=== PATIENT | male | born 1985 | race Caucasian/White ===

== ENCOUNTER → 2018-12-04 | Outpatient (CLI) | payer MEDICAID ==
[~2018-12-04] MED LIST: CARB200T48 PO; CLN.1T PO; NF-CARBAMX PO; RISP0.253; RISP0.5T21 PO; RISP1TAB94 PO; VIGAMOX OP
--- NOTE | 2018-12-04 12:06 | Diagnostic Imaging Report ---
CLINICAL INDICATION: Patient with seizures. EXAM: Axial CT scan of the brain performed without IV contrast. COMPARISON: CT angiogram of the head with and without contrast dated 12/09/2015. FINDINGS: There is overall stable appearance of brain parenchyma with small areas of chronic infarcts involving the bilateral frontal lobes (left side more than the right). There is stable encephalomalacia involving the parasagittal aspects of the bilateral parietal lobes and occipital lobes. There is encephalomalacia of the cerebellum bilaterally. There is no hydrocephalus, brain herniation or midline shift. There is no intracranial hemorrhage or evidence of acute cerebral infarct. Basal cisterns are unremarkable. The extracranial soft tissue, skull, and orbits show no significant interval abnormality. 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 There is near complete consolidation in right maxillary sinus which has progressed. There is a small air-fluid level in left maxillary sinus which has developed in the interim. Previously seen left maxillary sinus mucosal thickening is resolved. There is mild ethmoid sinus and frontal sinus mucosal thickening which has improved in the frontal sinus. Temporal bone structures show no significant abnormality. IMPRESSION: 1: There is overall progression of paranasal sinus disease, as described above. 2: Otherwise, stable brain parenchymal findings with no evidence of acute intracranial process. Dictated by: Dictated on workstation # [id number]
== END ==
LOC: RAD 11:12
PROVIDERS: ATTEND Psychiatry & Neurology Neurology
DX: J34.89 Other specified disorders of nose and nasal sinuses (principal); R56.9 Unspecified convulsions
CPT/HCPCS: 70450

== ENCOUNTER 2018-12-23 21:21 | Observation (INO) | payer MEDICAID ==
[~2018-12-23] VITALS: Ht 162.6 cm; Wt 60.1 kg
[2018-12-23 22:05] LABS: BASOPHILS % (AUTO) 0 % (0-10); EOSINOPHILS # (AUTO) 0.1 10^3/uL (0.0-0.3); EOSINOPHILS % (AUTO) 0 % (0-10); HEMATOCRIT 42 % (40-54); HEMOGLOBIN 14.5 G/DL (13.3-17.7); LYMPHOCYTES # (AUTO) 1.4 X 10^3 (1.0-4.0); LYMPHOCYTES % (AUTO) 11 % (12-44); MEAN CORPUSCULAR HEMOGLOBIN 33 PG (25-34); MEAN CORPUSCULAR HGB CONC 35 G/DL (32-36); MEAN CORPUSCULAR VOLUME 95 FL (80-99); MEAN PLATELET VOLUME 10.4 FL (7.4-10.4); MONOCYTES # (AUTO) 1.8 X 10^3 (0.0-1.0); MONOCYTES % (AUTO) 15 % (0-12); NEUTROPHILS % (AUTO) 73 % (42-75); PLATELET COUNT 302 10^3/uL (130-400); RED CELL DISTRIBUTION WIDTH 12.6 % (10.0-14.5); WHITE BLOOD COUNT 12.3 10^3/uL (4.3-11.0)
[2018-12-23] MEDS ORDERED: ASPIRIN 81 MG CHEW (CHILDREN'S ASA) PO ONE (22:15)
[2018-12-23 22:21] LABS: PROTHROMBIN TIME PATIENT 13.5 SEC (12.2-14.7)
[2018-12-23 22:27] LABS: ALANINE AMINOTRANSFERASE 13 U/L (0-55); ALBUMIN 4.3 GM/DL (3.2-4.5); ALKALINE PHOSPHATASE 76 U/L (40-136); BILIRUBIN,TOTAL 0.2 MG/DL (0.1-1.0); BUN/CREATININE RATIO 18; CARBON DIOXIDE 23 MMOL/L (21-32); CHLORIDE 104 MMOL/L (98-107); CREATINE KINASE 57 U/L (30-200); CREATININE SERUM 0.79 MG/DL (0.60-1.30); GFR ESTIMATED > 60; GLUCOSE 132 MG/DL (70-105); MAGNESIUM 1.9 MG/DL (1.6-2.4); SODIUM 140 MMOL/L (135-145); TOTAL PROTEIN 7.6 GM/DL (6.4-8.2)
--- NOTE | 2018-12-23 22:28 | ED General ---
General Chief Complaint: General Problems/Pain Stated Complaint: LABORED BREATHING Nursing Triage Note: mother states patient was asleep in bed and she heard a loud grouling sound coming from pts room and when she went to check on him he had turned blue around his mouth and nose and was not breathing and unresponsive to his name. Nursing Sepsis Screen: No Definite Risk Source of Information: Patient Exam Limitations: No Limitations History of Present Illness Date Seen by Provider: Dec 23, 2018 Time Seen by Provider: 21:42 Initial Comments This 33-year-old young man is brought to the emergency room by his mother after he had an episode of decreased responsiveness and possible cyanosis at his home. Mother heard him making some strange growling sounds and immediately went to his room. She found him not breathing and not alert. She raised him up to a sitting position and he immediately became alert, although his mental status was still altered. She reports he seems more somnolent than usual. He is talking and active on arrival. She reports she could not call 911 because her cell phone was . She immediately put him in the car and brought him to the emergency room. He did start breathing immediately upon her interventions. Patient does have a history of suspected seizures. The seizures tend to be takes or dystonic movements but not generalized. She has not known him to have a generalized seizure in many years. His neurologist is Dr. Zhu. He had a recent CT scan performed earlier this month showing encephalomalacia and chronic infarcts but no acute changes. He currently takes for protein acid and carbamazepine as well as Risperdal and clonidine. Patient can speak but he does not understand or respond to questions well enough to understand if he is having any pain or other complaints at this time. Mother reports he seems normal at this time other than being more somnolent than usual. Mother also noticed some rash on his abdomen and lower extremities. This has a scarlatina type appearance. Patient does not have fever. He also has a bruise superior and lateral to the right knee. This occurred from a fall days ago. He has been ambulatory does not seem to be in pain. Allergies and Home Medications Allergies Coded Allergies: No Known Drug Allergies (Unverified , 12/23/18) Home Medications Carbamazepine 200 Mg Tab.sr.12h, 200 MG PO BID, (Reported) Carbamazepine 100 Mg Tab, 100 MG PO BID, (Reported) Clonidine Hcl 0.1 Mg Tab, 0.1 MG PO HS, (Reported) Risperidone 1 Mg Tablet, 1 MG PO HS, (Reported) Patient Home Medication List Home Medication List Reviewed: Yes Review of Systems Review of Systems Constitutional: see HPI EENTM: no symptoms reported Respiratory: see HPI Cardiovascular: see HPI Gastrointestinal: no symptoms reported Genitourinary: no symptoms reported Musculoskeletal: see HPI Skin: see HPI Psychiatric/Neurological: See HPI Hematologic/Lymphatic: No Symptoms Reported Immunological/Allergic: no symptoms reported Past Lbvtjlc-Yqufsc-Tlxlus Hx Past Med/Social Hx: Reviewed and Corrections made Patient Social History Alcohol Use: Denies Use Recreational Drug Use: No 2nd Hand Smoke Exposure: No Recent Foreign Travel: No Contact w/Someone Who Travel: No Recent Infectious Disease Expo: No Recent Hopitalizations: No Physical Abuse: No Sexual Abuse: No Mistreated: No Fear: No Past Medical History Surgeries: No Respiratory: No Cardiac: No Neurological: Yes (AUTISIM, MR) Cerebral Palsy, Developmental Disorder, Seizure Disorder Genitourinary: No Gastrointestinal: No Musculoskeletal: Yes (CONTRACTURES OF HANDS/KNEES/HIPS) Contracture Endocrine: No HEENT: No Cancer: No Psychosocial: Yes (MR/AUTISM/? CEREBRAL PALSY? ) Integumentary: No Blood Disorders: No Physical Exam Vital Signs Vital Signs - First Documented 12/23/18 21:31 Temp 99.9 Pulse 117 Resp 18 B/P (MAP) 128/79 (95) Pulse Ox 97 Capillary Refill : Less Than 3 Seconds Height, Weight, BMI Height: 5'6" Weight: 134lbs. oz. 60.760425cv; BMI Method:Stated General Appearance: No Apparent Distress, WD/WN HEENT: PERRL/EOMI, Normal ENT Inspection, Pharyngeal Erythema, TM Abnormal (L) (scarring), TM Abnormal (R) (scarring) Neck: Normal Inspection Respiratory: Lungs Clear, Normal Breath Sounds, No Accessory Muscle Use, No Respiratory Distress Cardiovascular: Regular Rate, Rhythm, No Edema, No Murmur Gastrointestinal: Non Tender, Soft Extremity: No Pedal Edema, Other (bruising lateral and superior to the right knee. Fine maculopapular a rash scattered on the extremities, right greater than left) Neurologic/Psychiatric: Alert, Other (chronic neurologic deficits including contractures, greatest in the right upper extremity) Skin: Normal Color, Warm/Dry Progress/Results/Core Measures Suspected Sepsis Recent Fever Within 48 Hours: No Infection Criteria Present: None New/Unexplained Altered Menta: No Sepsis Screen: No Definite Risk SIRS Temperature:99.9 Pulse: 117 Respiratory Rate: 18 Laboratory Tests 12/23/18 22:00: White Blood Count 12.3H Blood Pressure 128 /79 Mean: 95 Laboratory Tests 12/23/18 22:00: Creatinine 0.79, INR Comment 1.0, Platelet Count 302, Total Bilirubin 0.2 Results/Orders Lab Results Laboratory Tests Test 12/23/18 21:57 12/23/18 22:00 12/23/18 22:17 12/23/18 22:48 Range/Units Group A Streptococcus Screen NEGATIVE NEGATIVE White Blood Count 12.3 H 4.3-11.0 10^3/uL Red Blood Count 4.41 4.35-5.85 10^6/uL Hemoglobin 14.5 13.3-17.7 G/DL Hematocrit 42 40-54 % Mean Corpuscular Volume 95 80-99 FL Mean Corpuscular Hemoglobin 33 25-34 PG Mean Corpuscular Hemoglobin Concent 35 32-36 G/DL Red Cell Distribution Width 12.6 10.0-14.5 % Platelet Count 302 130-400 10^3/uL Mean Platelet Volume 10.4 7.4-10.4 FL Neutrophils (%) (Auto) 73 42-75 % Lymphocytes (%) (Auto) 11 L 12-44 % Monocytes (%) (Auto) 15 H 0-12 % Eosinophils (%) (Auto) 0 0-10 % Basophils (%) (Auto) 0 0-10 % Neutrophils # (Auto) 9.0 H 1.8-7.8 X 10^3 Lymphocytes # (Auto) 1.4 1.0-4.0 X 10^3 Monocytes # (Auto) 1.8 H 0.0-1.0 X 10^3 Eosinophils # (Auto) 0.1 0.0-0.3 10^3/uL Basophils # (Auto) 0.0 0.0-0.1 10^3/uL Erythrocyte Sedimentation Rate 2 0-15 MM/HR Prothrombin Time 13.5 12.2-14.7 SEC INR Comment 1.0 0.8-1.4 Activated Partial Thromboplast Time 28 24-35 SEC Sodium Level 140 135-145 MMOL/L Potassium Level 4.0 3.6-5.0 MMOL/L Chloride Level 104 98-107 MMOL/L Carbon Dioxide Level 23 21-32 MMOL/L Anion Gap 13 5-14 MMOL/L Blood Urea Nitrogen 14 7-18 MG/DL Creatinine 0.79 0.60-1.30 MG/DL Estimat Glomerular Filtration Rate > 60 BUN/Creatinine Ratio 18 Glucose Level 132 H 70-105 MG/DL Calcium Level 9.0 8.5-10.1 MG/DL Corrected Calcium 8.8 8.5-10.1 MG/DL Magnesium Level 1.9 1.6-2.4 MG/DL Total Bilirubin 0.2 0.1-1.0 MG/DL Aspartate Amino Transf (AST/SGOT) 10 5-34 U/L Alanine Aminotransferase (ALT/SGPT) 13 0-55 U/L Alkaline Phosphatase 76 40-136 U/L Total Creatine Kinase 57 30-200 U/L Myoglobin 16.8 10.0-92.0 NG/ML Troponin I < 0.028 <0.028 NG/ML C-Reactive Protein High Sensitivity 1.06 H 0.00-0.50 MG/DL Total Protein 7.6 6.4-8.2 GM/DL Albumin 4.3 3.2-4.5 GM/DL Valproic Acid (Depakene) Level 120.9 *H 50.0-100.0 UG/ML Glucometer 114 H 70-110 MG/DL Urine Color YELLOW Urine Clarity CLEAR Urine pH 7 5-9 Urine Specific [place] 1.010 L 1.016-1.022 Urine Protein 2+ H NEGATIVE Urine Glucose (UA) NEGATIVE NEGATIVE Urine Ketones 1+ H NEGATIVE Urine Nitrite NEGATIVE NEGATIVE Urine Bilirubin NEGATIVE NEGATIVE Urine Urobilinogen 4 H NORMAL MG/DL Urine Leukocyte Esterase NEGATIVE NEGATIVE Urine RBC (Auto) NEGATIVE NEGATIVE Urine RBC NONE /HPF Urine WBC NONE /HPF Urine Squamous Epithelial Cells RARE /HPF Urine Crystals PRESENT H /LPF Urine Amorphous Sediment FEW MURALI PHOSPHATE H /LPF Urine Bacteria TRACE /HPF Urine Casts NONE /LPF Urine Mucus SMALL H /LPF Urine Culture Indicated NO My Orders Orders - DEDRICK ANDERSON MD Cbc With Automated Diff (12/23/18 21:44) Comprehensive Metabolic Panel (12/23/18 21:44) Creatine Kinase (12/23/18 21:44) Magnesium (12/23/18 21:44) Ua Culture If Indicated (12/23/18 21:44) Chest 1 View, Ap/Pa Only (12/23/18 21:44) Accucheck Stat ONCE (12/23/18 21:44) Ed Iv/Invasive Line Start (12/23/18 21:44) Ekg Tracing (12/23/18 21:44) Monitor-Rhythm Ecg Trace Only (12/23/18 21:44) Valproic Acid (12/23/18 21:46) Cardiac Profile 1 (12/23/18 22:09) Myoglobin Serum (12/23/18 22:09) Protime With Inr (12/23/18 22:09) Partial Thromboplastin Time (12/23/18 22:09) O2 (12/23/18 22:09) Lipid Panel (12/24/18 06:00) Aspirin Chewable Tablet (Baby Aspirin Ch (12/23/18 22:15) Erythrocyte Sedimentation Rate (12/23/18 22:09) Hs C Reactive Protein (12/23/18 22:00) Rapid Strep A Screen (12/23/18 22:21) Ekg Tracing (12/23/18 22:31) Ceftriaxone For Iv Use (Rocephin For I (12/23/18 23:00) Ns Iv 1000 Ml (Sodium Chloride 0.9%) (12/23/18 22:54) Medications Given in ED Current Medications Medications Dose Ordered Sig/Donald Route Start Time Stop Time Status Last Admin Dose Admin Aspirin 324 mg ONCE ONCE PO 12/23/18 22:15 12/23/18 22:16 DC 12/23/18 22:20 324 MG Vital Signs/I&O 12/23/18 21:31 Temp 99.9 Pulse 117 Resp 18 B/P (MAP) 128/79 (95) Pulse Ox 97 Capillary Refill : Less Than 3 Seconds Blood Pressure Mean: 95 Progress Note : Progress Note Patient's EKG demonstrated ST elevation in a rather diffuse pattern. This was suggestive of either early repolarization or pericarditis. This was further evaluated with ESR and CRP both of which were rather low. EKG was reviewed by Dr. Carlos who did not feel it represented acute ischemia. He recommended a second EKG which was performed about 30 minutes later. There was no change. Troponin was negative. Repeat troponin was recommended. Rapid strep test was negative but this was collected with a rather dry throat. Because of the symptoms and rash suggestive of scarlatina, Rocephin was administered. Case was discussed with Dr. Green and Dr. Carlos who agree observation is appropriate. Valproic acid was supratherapeutic and further doses will be held. A liter of IV fluids is being administered. I did ask the patient about pain. He resp onded affirmatively to questions about pain. When I asked him where his pain was, he stated "I'm hungry". Patient had no episodes of altered mental status or cardiac events while in the ER. ECG EKG #1: EKG Time: 22:02 Rate: 113 Rhythm: S.Tach Comment Sinus tachycardia with ST elevation in multiple leads, most prominent in V2. ST changes are likely early repolarization abnormality versus pericarditis. No abnormal intervals or axis deviation. No prior available for comparison. EKG #2: EKG Time: 22:31 Rate: 112 Rhythm: S.Tach Comment Sinus tachycardia with ST elevation in multiple leads, most prominent in V2. ST changes are likely early repolarization abnormality versus pericarditis. No abnormal intervals or axis deviation. No significant change from prior earlier this evening. Diagnostic Imaging Diagonstic Imaging: Xray Plain Films/CT/US/NM/MRI: chest Comments Chest x-ray viewed by me and report not yet available. No acute abnormalities appreciated. Departure Communication (Admissions) Time/Spoke to Admitting Phy: 22:45 Dr. Green Time/Spoke to Consulting Phy: 22:45 Dr. Carlos Impression Primary Impression: Syncope Qualified Codes: R55 - Syncope and collapse Additional Impressions: ST elevation supratherapeutic valproic acid Disposition: ADMITTED INPATIENT Condition: Improved Admissions Decision to Admit Reason: Admit from ER (General) Decision to Admit/Date: Dec 23, 2018 Time/Decision to Admit Time: 22:45 Departure-Patient Inst. Referrals: RADHA ATKINS MD (PCP/Family) Primary Care Physician Copy Copies To 1: RADHA ATKINS MD, JOSHUA T MD Dec 23, 2018 22:28
[2018-12-23 22:37] LABS: VALPROIC ACID 120.9 UG/ML (50.0-100.0)
[2018-12-23] MEDS ORDERED: DIVA-76 PO (22:47)
[2018-12-23] MEDS ORDERED: NS IV 1000 ML 1,000 ML IV ONE (22:54)
[2018-12-23 22:56] LABS: BILIRUBIN,URINE NEGATIVE (NEGATIVE); CLARITY,URINE CLEAR; COLOR,URINE YELLOW; GLUCOSE, URINE (UA) NEGATIVE (NEGATIVE); KETONES,URINE 1+ (NEGATIVE); LEUKOCYTE ESTERASE ,URINE NEGATIVE (NEGATIVE); NITRITE,URINE NEGATIVE (NEGATIVE); PH,URINE 7 (5-9); PROTEIN,URINE 2+ (NEGATIVE); UROBILINOGEN,URINE 4 MG/DL (NORMAL)
[2018-12-23] MEDS ORDERED: cefTRIAXone FOR IV USE 1,000 MG in WATER (STERILE) FOR INJECTION 10 ML IV ONE (23:00)
[2018-12-23 23:04] LABS: AMORPHOUS SEDIMENT,UR FEW AMOR PHOSPHATE /LPF; BACTERIA,URINE TRACE /HPF; SQUAMOUS EPITHELIAL CELL,UR RARE /HPF
--- NOTE | 2018-12-23 23:50 | NUR ---
GABRIELLA,LESLYE R admitted to room 415-1, with an admitting diagnosis of SYNCOPE, SUPRATHERAPEUTIC VALPROIC ACID, ST ELEVATION, on 12/23/18 from ED via WHEELCHAIR, accompanied by MOTHER AND ED STAFF.LESLYE QUIROZ introduced to surroundings, call light, bed controls, phone, TV, temperature control, lights, meal times, smoking policy, visitor policy, side rail policy, bathrooms and showers. Patient Rights given to patient in the handbook. LESLYE QUIROZ verbalizes understanding that [facility] is not responsible for the loss or damage to any personal effects or valuables that are kept in the patients posession during their hospitalization. LESLYE QUIROZ AND FAMILY verbalizes understanding of Interdisciplinary Patient Education.
[2018-12-24] MEDS ORDERED: PATIENT MAY USE OWN MEDS, ALL PO PRN (01:15)
[2018-12-24] MEDS ORDERED: CARBAMAZEPINE 100 MG PO SCH ×4 (03:00→10:04)
[2018-12-24 04:00] VITALS: BP 137/72
[2018-12-24 04:08] LABS: BASOPHILS % (AUTO) 0 % (0-10); EOSINOPHILS # (AUTO) 0.1 10^3/uL (0.0-0.3); EOSINOPHILS % (AUTO) 1 % (0-10); HEMATOCRIT 42 % (40-54); HEMOGLOBIN 14.3 G/DL (13.3-17.7); LYMPHOCYTES # (AUTO) 2.9 X 10^3 (1.0-4.0); LYMPHOCYTES % (AUTO) 23 % (12-44); MEAN CORPUSCULAR HEMOGLOBIN 33 PG (25-34); MEAN CORPUSCULAR HGB CONC 34 G/DL (32-36); MEAN CORPUSCULAR VOLUME 96 FL (80-99); MEAN PLATELET VOLUME 10.5 FL (7.4-10.4); MONOCYTES # (AUTO) 2.3 X 10^3 (0.0-1.0); MONOCYTES % (AUTO) 18 % (0-12); NEUTROPHILS # (AUTO) 7.4 X 10^3 (1.8-7.8); NEUTROPHILS % (AUTO) 58 % (42-75); PLATELET COUNT 283 10^3/uL (130-400); RED CELL DISTRIBUTION WIDTH 12.9 % (10.0-14.5); WHITE BLOOD COUNT 12.6 10^3/uL (4.3-11.0)
[2018-12-24 04:41] LABS: BUN/CREATININE RATIO 16; CALCIUM 8.6 MG/DL (8.5-10.1); CARBON DIOXIDE 23 MMOL/L (21-32); CHLORIDE 108 MMOL/L (98-107); CHOLESTEROL 170 MG/DL (< 200); CREATININE SERUM 0.68 MG/DL (0.60-1.30); GFR ESTIMATED > 60; GLUCOSE 100 MG/DL (70-105); HDL CHOLESTEROL 65 MG/DL (40-60); POTASSIUM 4.1 MMOL/L (3.6-5.0); SODIUM 142 MMOL/L (135-145); TRIGLYCERIDES 80 MG/DL (<150); VLDL CHOLESTEROL 16 MG/DL (5-40)
[2018-12-24 05:44] VITALS: BP 116/69
--- NOTE | 2018-12-24 05:53 | NUR ---
scheduled 100mg carbamazepine at 0300 non-administered at this time because pt mother states pt usually takes the 100mg carbamazepine and the 200mg carbamazepine at the same time twice a day. pt mother states pt last took both the 100mg and 200mg carbamazepine around 1800 on 12/23/2018.
--- NOTE | 2018-12-24 06:09 | Diagnostic Imaging Report ---
EXAMINATION: Portable erect AP chest at 1025 PM INDICATION: Unresponsive This exam is less than optimal as the patient is rotated. Allowing for technical factor, the heart size is within normal limits and stable when compared to 12/09/2015. The lungs are clear. There is no evidence for failure, pneumonia or for a pleural effusion. The mediastinum is not widened. The osseous structures are intact. IMPRESSION: There is no evidence for an acute cardiopulmonary abnormality. Dictated by: Dictated on workstation # [id number]
[2018-12-24 08:00] VITALS: BP 119/82
[2018-12-24] MEDS ORDERED: RANI150T11 PO (08:57)
[2018-12-24] MEDS ORDERED: CARB200T48 PO (08:57)
[2018-12-24] MEDS ORDERED: RISP1TAB3 PO (08:57)
[2018-12-24] MEDS ORDERED: CLON0.1T PO (08:57)
[2018-12-24] MEDS ORDERED: CARB100T48 PO (08:57)
[2018-12-24] MEDS ORDERED: risperiDONE 2 MG (RisperDAL) TAB PO SCH (09:00)
--- NOTE | 2018-12-24 09:07 | NUR ---
SPOKE WITH THE PATIENT'S GUARDIAN REGARDING MEDICATIONS. WE WENT OVER THE EXT MED HX AND SHE VERIFIED HOW HE TAKES THEM.
--- NOTE | 2018-12-24 09:11 | Consultation-Cardiology ---
HPI-Cardiology Cardiology Consultation: Date of Consultation 12/24/18 Time Seen by a Provider: 08:45 Date of Admission 12-23-18 Attending Physician Wilberto Green MD Admitting Physician Kylah Sargent MD Consulting Physician Twila Carlos MD HPI: Chief Complaint: Syncope Mr. Quiroz is a 33 year old male admitted to 415 from the ED. He has autism. His mother is at the bedside and has provided us with information. She states he was in his room yesterday when she heard a low noise. She went into his bedroom and found him on the floor. She states he wan unresponsive. She report s he was blue around the mouth and she felt he was swollen around the neck. She reports no obvious signs of injury at the time. She states he was not breathing and just staring. She reports she was able to get him to focus on her, but he still was not breathing well. She reports she was unable to call EMS d/t a low cell phone battery. She placed him in her private vehicle and brought him to the ED. She denies any fever or chills that she is aware of. She reports yesterday he did have diarrhea and a red rash on his legs bilat and up onto his torso which does not appear to be present at this time. She states he was one of a twin born 4 months pre-mature. He received care at [facility] in [place]. She states she has limited knowledge of his previous care since she did not have custody of him until he was age 18. He is cooperative. Review of Systems-Cardiology Review of Systems Constitutional: As described under HPI Eyes: other (R pupil dilation chronic per pt mother) Respiratory: As described under HPI Cardiovascular: As described under HPI Gastrointestinal: As described under HPI Skin: As described under HPI Other comments D/t pts mentation ROS to the extent it can be obtained has been obtained via his mother and is documented as above and in HPI ACH-Hzzmlj-Eqqdrg Hx Patient Social History Alcohol Use: Denies Use Recreational Drug Use: No 2nd Hand Smoke Exposure: No Recent Foreign Travel: No Recent Infectious Disease Expo: No Hospitalization with Isolation: Denies Past Medical History PMH As described under Assessment. Family Medical History Family Medical History: Mother reports pt father had IN at age 50 Mother reports she has HTN, DM, HLD Allergies and Home Medications Allergies Coded Allergies: No Known Drug Allergies (Unverified , 12/23/18) Home Medications Carbamazepine 100 Mg Tab.er.12h, 100 MG PO 0730,1800, (Reported) TAKES ALONG WITH 200MG TABLET Carbamazepine 200 Mg Tab.er.12h, 200 MG PO 0730,1800, (Reported) TAKES ALONG WITH 100MG TABLET Divalproex Sodium 500 Mg Tablet.dr, 1,000 MG PO 0730,1800, (Reported) TAKES 2 (500MG) TABLETS Ranitidine HCl 150 Mg Tablet, 150 MG PO 0730, (Reported) Risperidone 1 Mg Tablet, 2 MG PO 0730,1800, (Reported) TAKES 2 (1MG) TABLETS Patient Home Medication List Home Medication List Reviewed: Yes Physical Exam-Cardiology Physical Exam Vital Signs/I&O 12/25/18 00:00 Intake Total 480 ml Balance 480 ml Capillary Refill : Less Than 3 Seconds Constitutional: well-developed, well-nourished, other (cooperative) HEENT: other (R pupil larger than left (chronic per mother)) Respiratory: No accessory muscle use, No respiratory distress; chest expansion is symmetric, chest is bilaterally symmetric, lungs clear to auscultation Cardiovascular: regular rate-rhythm; No JVD; S1 and S2 Gastrointestinal: No tender; soft, round, audible bowel sounds Rectal: deferred Extremities: no lower extremity edema bilateral Neurologic/Psychiatric: grossly intact, power is 5/5 both on sides Skin: No rash, No ulcerations; other (fading bruise to right lateral aspect of knee) Data Review Labs Microbiology 12/23/18 Throat Culture - Final, Complete No Beta Strep isolated Radiology NAME: LESLYE QUIROZ [facility] REC#: [id number] PT STATUS: ADM Domenica : 1985 PHYSICIAN: DEDRICK ANDERSON MD ADMIT DATE: 12/23/18/ Signed Date of Exam: 12/23/18 CHEST 1 VIEW, AP/PA ONLY EXAMINATION: Portable erect AP chest at 1025 PM INDICATION: Unresponsive This exam is less than optimal as the patient is rotated. Allowing for technical factor, the heart size is within normal limits and stable when compared to 12/09/2015. The lungs are clear. There is no evidence for failure, pneumonia or for a pleural effusion. The mediastinum is not widened. The osseous structures are intact. IMPRESSION: There is no evidence for an acute cardiopulmonary abnormality. Dictated by: Dictated on workstation # [id number] Dict: 12/24/18 0557 Trans: 12/24/18 0745 Interpreted by: JERMAN KHAN MD Electronically signed by: JERMAN KHAN MD 12/24/18 0745 A/P-Cardiology Assessment/Admission Diagnosis Unwitnessed syncopal episode of undetermined etiology Autism Seizure disorder - follows with Dr. Zhu of neurology services at [facility] Supra therapeutic Depakote level CT of the head on 12-04-18: overall stable appearance of brain parenchyma with small areas of chronic infarcts involving the bilateral frontal lobes (left side more than the right). There is stable encephalomalacia involving the parasagittal aspects of the bilateral parietal lobes and occipital lobes. There is encephalomalacia of the cerebellum bilaterally. No acute process. Follows with neurology services at [facility]. Family h/o CAD - father IN age 50 Discussion and Recomendations Unwitnessed syncopal episode of undetermined etiology - possible seizure Echocardiogram to eval structure and function Management of seizure medications as per medical services We would like to thank medical services for this consult Further recs will be based on his hospital course Advise cardiology f/u in one month Clinical Quality Measures DVT/VTE Risk/Contraindication: Risk Factor Score Per Nursin RFS Level Per Nursing on Admit: 2=Moderate HERO SERNA Dec 24, 2018 09:11
[2018-12-24] MEDS ORDERED: CARBAMAZEPINE PO SCH ×2 (10:03→10:04)
[2018-12-24] MEDS ORDERED: risperiDONE 1 MG (RisperDAL) TAB PO SCH (10:06)
--- NOTE | 2018-12-24 11:15 | NUR ---
Initial visit with the pt, his mother and cousin. The pt engaged mostly by smiling and interjecting with brief sentences and questions, such as "I am going home?" His family engaged warmly and shared that they are members of [facility] [employer]. While we spoke, the pt suddenly began exclaiming repeatedly that his feet were cold. I reassured him, and with the assistance of MEKHI Santamaria we promptly provided the pt with socks, to which the pt responded by smiling and stating he felt better. The family requested that I pray with them before our visit concluded. Their automobile mechanic supervisor has been contacted by the family. I told them their automobile mechanic supervisor was welcome to visit, and that our chaplains were present for additional support. They expressed appreciation for welcoming the support of their zena community, and for our visit.
[2018-12-24 12:00] VITALS: BP 90/52
--- NOTE | 2018-12-24 13:30 | Short Stay Summary-Hospitalist ---
History of Present Illness HPI/Chief Complaint Pt is a 33yoCM with a PMH of autism, seizure disorder, CP who presented with altered mental status. He is unable to provide any history due to baseline mental function. His mom provides all the history. She reports he was sleeping in the other room and she noticed a gurgling noise. She went to check on him and he was not alert and his mouth was blue. She adjusted his position and he came to but was not at his normal level of alertness. She also noticed all of his muscle were "tense and rigid." She went to call for 911 but her cell phone was so she put him in the car and drove to the ER. He was found to have diffuse ST changes on EKG and was admitted for observation. She states he is back to his baseline mental status at this time and would like to discharge home if able as he gets agitated in foreign environments. Source: patient Date Seen 12/24/18 Time Seen by a Provider: 11:45 Attending Physician Wilberto Green MD PCP Kylah Sargent MD Referring Physician Date of Admission Dec 23, 2018 at 10:45 pm Home Medications & Allergies Home Medications Reviewed patient Home Medication Reconciliation performed by pharmacy medication reconciliations correctional maintenance technician and/or nursing. Patients Allergies have been reviewed. Allergies Allergies Coded Allergies No Known Drug Allergies (Unverified12/23/18) Past Pqbtrxj-Tkfuuy-Ltgzkl Hx Past Med/Social Hx: Reviewed and Corrections made Patient Social History Marrital Status: single Employed/Student: unemployed Alcohol Use: Denies Use Recreational Drug Use: No 2nd Hand Smoke Exposure: No Recent Foreign Travel: No Contact w/other who traveled: No Recent Hopitalizations: No Recent Infectious Disease Expo: No Past Medical History Neurological: Cerebral Palsy, Developmental Disorder, Seizure Disorder Musculoskeletal: Contracture History of Blood Disorders: No Review of Systems ROS-Unable to Obtain: clinical condition Constitutional: see HPI Physical Exam Physical Exam Vital Signs Vital Signs - First Documented 12/23/18 12/23/18 21:31 23:55 Temp 99.9 Pulse 117 Resp 18 B/P (MAP) 128/79 (95) Pulse Ox 97 O2 Delivery Room Air Capillary Refill : Less Than 3 Seconds Height, Weight, BMI Height: 5'4.00" Weight: 132lbs. 8.0oz. 60.476154sv; BMI Method:Stated General Appearance: No Apparent Distress, WD/WN, Chronically ill HEENT: PERRL/EOMI, Pharynx Normal, Moist Mucous Membranes, Other (poor dentition) Neck: Normal Inspection, Supple Respiratory: Lungs Clear, No Accessory Muscle Use, No Respiratory Distress Cardiovascular: Regular Rate, Rhythm, No Edema, No Murmur Gastrointestinal: Normal Bowel Sounds, Non Tender, Soft Extremity: No Pedal Edema, Other (bruising lateral and superior to the right knee. Fine maculopapular a rash scattered on the extremities, right greater than left) Neurologic/Psychiatric: Alert, Other (verbally communicates but does not answer questions appropriately, moderatel intellectual deficit) Skin: Normal Color, Warm/Dry Results Results/Procedures Labs Laboratory Tests 12/23/18 22:00 12/24/18 04:01 Patient resulted labs reviewed. Imaging: Reviewed Imaging Report Short Stay Diagnosis Discharge Diagnosis-Short Stay Admission Diagnosis Seizure Final Discharge Diagnosis Seizure Conclusion Plan Seizure Disorder Episode likely epileptic in nature Discussed with his neurologist who recommends continued dose of Depakote despite slightly elevated levels He will see in follow up Plan to DC home Diffuse ST Elevation Now resolved Cardiology consulted, appreciate recs Echo unremarkable Diagnosis/Problems Diagnosis/Problems (1) Seizure disorder (2) supratherapeutic valproic acid (3) ST elevation Status: Acute Clinical Quality Measures DVT/VTE Risk/Contraindication: Risk Factor Score Per Nursin RFS Level Per Nursing on Admit: 2=Moderate ANTONINA FERNANDEZ MD Dec 24, 2018 13:30
--- NOTE | 2018-12-24 13:47 | Consultation-Cardiology ---
HPI-Cardiology Cardiology Consultation: Date of Consultation 12/24/18 Time Seen by a Provider: 09:15 Date of Admission Attending Physician Wilberto Green MD Admitting Physician Kylah Sargent MD Consulting Physician EMEKA REIS MD, MA, FACP, FACC, FSCAI, CCDS Physician requesting consult: Hospitalist Service HPI: Chief Complaint: Reason for consultation: Possible syncope HPI Mr. Borden is a 33 year old male admitted to 415 from the ED. He has autism. His mother is at the bedside and has provided us with information. She states he was in his room yesterday when she heard a low noise. She went into his bedroom and found him on the floor. She states he wan unresponsive. She reports he was blue around the mouth and she felt he was swollen around the neck. She reports no obvious signs of injury at the time. She states he was not breathing and just staring. She reports she was able to get him to focus on her, but he still was not breathing well. She reports she was unable to call EMS d/t a low cell phone battery. She placed him in her private vehicle and brought him to the ED. She denies any fever or chills that she is aware of. She reports yesterday he did have diarrhea and a red rash on his legs bilat and up onto his torso which does not appear to be present at this time. She states he was one of a twin born 4 months pre-mature. He received care at [facility] in [place]. She states she has limited knowledge of his previous care since she did not have custody of him until he was age 18. He is cooperative. Review of Systems-Cardiology Review of Systems Constitutional: As described under HPI Eyes: other (R pupil dilation chronic per pt mother) Respiratory: As described under HPI Cardiovascular: As described under HPI Gastrointestinal: As described under HPI Skin: As described under HPI UJM-Ntbtle-Bvbpkm Hx Patient Social History Alcohol Use: Denies Use Recreational Drug Use: No 2nd Hand Smoke Exposure: No Recent Foreign Travel: No Recent Infectious Disease Expo: No Hospitalization with Isolation: Denies Past Medical History PMH As described under Assessment. Family Medical History Family Medical History: Mother reports pt father had NC at age 50 Mother reports she has HTN, DM, HLD Allergies and Home Medications Allergies Coded Allergies: No Known Drug Allergies (Unverified , 12/23/18) Home Medications Carbamazepine 100 Mg Tab.er.12h, 100 MG PO 0730,1800, (Reported) TAKES ALONG WITH 200MG TABLET Carbamazepine 200 Mg Tab.er.12h, 200 MG PO 0730,1800, (Reported) TAKES ALONG WITH 100MG TABLET Clonidine HCl 0.1 Mg Tablet, 0.1 MG PO 1800, (Reported) Divalproex Sodium 500 Mg Tablet.dr, 1,000 MG PO 0730,1800, (Reported) TAKES 2 (500MG) TABLETS Ranitidine HCl 150 Mg Tablet, 150 MG PO 0730, (Reported) Risperidone 1 Mg Tablet, 2 MG PO 0730,1800, (Reported) TAKES 2 (1MG) TABLETS Patient Home Medication List Home Medication List Reviewed: Yes Physical Exam-Cardiology Physical Exam Vital Signs/I&O 12/24/18 12/24/18 12/24/18 12/24/18 04:00 05:44 07:00 08:00 Temp 98.8 98.7 98.0 Pulse 107 94 92 104 Resp 18 17 18 B/P (MAP) 137/72 (93) 116/69 119/82 (94) Pulse Ox 98 98 98 O2 Delivery Room Air Room Air Room Air 12/24/18 12/24/18 08:00 12:00 Temp 98.1 Pulse 97 Resp 18 B/P (MAP) 90/52 (65) Pulse Ox 97 O2 Delivery Room Air Room Air 12/24/18 00:00 Intake Total 10 ml Balance 10 ml Capillary Refill : Less Than 3 Seconds Constitutional: well-developed, well-nourished, other (cooperative) HEENT: other (R pupil larger than left (chronic per mother)) Respiratory: No accessory muscle use, No respiratory distress; chest expansion is symmetric, chest is bilaterally symmetric, lungs clear to auscultation Cardiovascular: regular rate-rhythm; No JVD; S1 and S2 Gastrointestinal: No tender; soft, round, audible bowel sounds Rectal: deferred Extremities: no lower extremity edema bilateral Neurologic/Psychiatric: grossly intact, power is 5/5 both on sides Skin: No rash, No ulcerations; other (fading bruise to right lateral aspect of knee) Data Review Labs Laboratory Tests 12/23/18 21:57: Group A Streptococcus Screen NEGATIVE 12/23/18 22:00: White Blood Count 12.3H, Red Blood Count 4.41, Hemoglobin 14.5, Hematocrit 42, Mean Corpuscular Volume 95, Mean Corpuscular Hemoglobin 33, Mean Corpuscular Hemoglobin Concent 35, Red Cell Distribution Width 12.6, Platelet Count 302, Mean Platelet Volume 10.4, Neutrophils (%) (Auto) 73, Lymphocytes (%) (Auto) 11L , Monocytes (%) (Auto) 15H, Eosinophils (%) (Auto) 0, Basophils (%) (Auto) 0, Neutrophils # (Auto) 9.0H, Lymphocytes # (Auto) 1.4, Monocytes # (Auto) 1.8H, Eosinophils # (Auto) 0.1, Basophils # (Auto) 0.0, Erythrocyte Sedimentation Rate 2, Prothrombin Time 13.5, INR Comment 1.0, Activated Partial Thromboplast Time 28, Sodium Level 140, Potassium Level 4.0, Chloride Level 104, Carbon Dioxide Level 23, Anion Gap 13, Blood Urea Nitrogen 14, Creatinine 0.79, Estimat Glomerular Filtration Rate > 60, BUN/Creatinine Ratio 18, Glucose Level 132H, Calcium Level 9.0, Corrected Calcium 8.8, Magnesium Level 1.9, Total Bilirubin 0.2, Aspartate Amino Transf (AST/SGOT) 10, Alanine Aminotransferase (ALT/SGPT) 13, Alkaline Phosphatase 76, Total Creatine Kinase 57, Myoglobin 16.8, Troponin I < 0.028, C-Reactive Protein High Sensitivity 1.06H, Total Protein 7.6, Albumin 4.3, Valproic Acid (Depakene) Level 120.9*H 12/23/18 22:17: Glucometer 114H 12/23/18 22:48: Urine Color YELLOW, Urine Clarity CLEAR, Urine pH 7, Urine Specific [place] 1.010L, Urine Protein 2+H, Urine Glucose (UA) NEGATIVE, Urine Ketones 1+H, Urine Nitrite NEGATIVE, Urine Bilirubin NEGATIVE, Urine Urobilinogen 4H, Urine Leukocyte Esterase NEGATIVE, Urine RBC (Auto) NEGATIVE, Urine RBC NONE, Urine WBC NONE, Urine Squamous Epithelial Cells RARE, Urine Crystals PRESENTH, Urine Amorphous Sediment FEW MURALI PHOSPHATEH, Urine Bacteria TRACE, Urine Casts NONE, Urine Mucus SMALLH, Urine Culture Indicated NO 12/24/18 04:01: White Blood Count 12.6H, Red Blood Count 4.40, Hemoglobin 14.3, Hematocrit 42, Mean Corpuscular Volume 96, Mean Corpuscular Hemoglobin 33, Mean Corpuscular Hemoglobin Concent 34, Red Cell Distribution Width 12.9, Platelet Count 283, Mean Platelet Volume 10.5H, Neutrophils (%) (Auto) 58, Lymphocytes (%) (Auto) 23, Monocytes (%) (Auto) 18H, Eosinophils (%) (Auto) 1, Basophils (%) (Auto) 0, Neutrophils # (Auto) 7.4, Lymphocytes # (Auto) 2.9, Monocytes # (Auto) 2.3H, Eosinophils # (Auto) 0.1, Basophils # (Auto) 0.0, Sodium Level 142, Potassium Level 4.1, Chloride Level 108H, Carbon Dioxide Level 23, Anion Gap 11, Blood Urea Nitrogen 11, Creatinine 0.68, Estimat Glomerular Filtration Rate > 60, BUN/Creatinine Ratio 16, Glucose Level 100, Calcium Level 8.6, Troponin I < 0.028, Triglycerides Level 80, Cholesterol Level 170, LDL Cholesterol Direct 94, VLDL Cholesterol 16, HDL Cholesterol 65H A/P-Cardiology Assessment/Admission Diagnosis Assumed syncope, none witnessed Echo of 12/24/18: Normal. LVEF 60-65% Early repolarization on ECG. No evidence of NC or pericarditis/myocarditis Autism Seizure disorder - follows with Dr. Zhu of neurology services at [facility] Supra therapeutic Depakote level. Being managed by the Hospitalist Mary H/o hypertension. 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 There is stable encephalomalacia involving the parasagittal aspects of the bilateral parietal lobes and occipital lobes. There is encephalomalacia of the cerebellum bilaterally. No acute process. Follows with neurology services at [facility]. Family h/o CAD - father NC age 50 Discussion and Recomendations * No evidence of any cardiac syncope or ac cardiac event * Management of seizure and seizure medications is with the Hospitalist Mary * We recommend d/c clonidine because bp has been normal or low normal during the hospitalization * I had a long and detailed discussion with his mother * Outpt f/u is advised in one month (or earlier, if needed) Clinical Quality Measures DVT/VTE Risk/Contraindication: Risk Factor Score Per Nursin RFS Level Per Nursing on Admit: 2=Moderate CHATO,ALI MD FACP FACC CCDS Dec 24, 2018 13:47
--- NOTE | 2018-12-24 14:45 | Discharge Inst-Simple/Standard ---
Discharge Inst-Standard Patient Instructions/Follow Up Plan of Care/Instructions/FU: Please continue to take your medications as written. Please follow up with your PCP and Dr Zhu in the next week. Activity as Tolerated: Yes Discharge Diet: No Restrictions Return to The Hospital For: Seizures, confusion, fever, if you feel you are getting worse. Planned Outpatient Orders/Ref. Pneu Vac Indicated: Yes ANTONINA FERNANDEZ MD Dec 24, 2018 2:45 pm
[2018-12-24 16:00] VITALS: BP 130/67
[2018-12-24 16:30] VITALS: BP 130/67
--- NOTE | 2018-12-24 16:30 | NUR ---
LESLYE QUIROZ demonstrates understanding of discharge instructions and accurately returns instructions upon questioning. Copy of Post-Discharge Instructions given to MOTHER. LESLYE QUIROZ is able to manage continuing needs after discharge WITH MOTHERS ASSISTANCE. Patients belongings returned to MOTHER. Patient discharged from [facility] on 12/24/18 at 1630 . LESLYE QUIROZ left floor via W/C, accompanied by STAFF AND MOTHER PER AUTO.
[2018-12-24] MEDS ORDERED: cloNIDine 0.1 MG (CATAPRES) TAB PO SCH (21:00)
== END 2018-12-24 14:45 | disposition home or self-care (01) ==
LOC: EDUNIT# 21:21 → ER 21:22 → UNDOADMOB 22:45 → 4TH 22:45
PROVIDERS: ADMIT Internal Medicine; ATTEND Internal Medicine
DX: R56.9 Unspecified convulsions (principal); I21.09 ST elevation (STEMI) myocardial infarction involving other coronary artery of anterior wall; R55 Syncope and collapse; G80.9 Cerebral palsy, unspecified; F89 Unspecified disorder of psychological development; F84.0 Autistic disorder; Z82.49 Family history of ischemic heart disease and other diseases of the circulatory system; Z83.3 Family history of diabetes mellitus; Z79.899 Other long term (current) drug therapy
CPT/HCPCS: 36415; 71045; 80048; 80053; 80061; 80164; 81000; 82550; 82962; 83735; 83874; 84484; 85025; 85610; 85652; 85730; 86141; 87430; 93005; 93041; 93306; 96361; 96374; G0378

== ENCOUNTER 2021-11-19 22:34 | Emergency (ER) | payer MEDICAID ==
[~2021-11-19 22:34] MED LIST changes: +CARB100T48 PO; +DIVA-76 PO; +RANI150T11 PO; +RISP1TAB93 PO
[2021-11-19] MEDS ORDERED: IBUPROFEN SUSP 100MG/5ML (MOTRIN) UDC PO ONE (23:00)
--- NOTE | 2021-11-19 23:00 | ED Lower Extremity ---
General Stated Complaint: FALL - LEFT FOOT / ANKLE PAIN & SWELLING Source: family (mother) Exam Limitations: physical impairment History of Present Illness Date Seen by Provider: Nov 19, 2021 Time Seen by Provider: 22:50 Initial Comments Patient is a 36-year-old male, intellectually disabled who presents with his mother who is also his guardian chief complaint of left foot and ankle bruising and mild swelling. He had a fall earlier today and she did not notice the amount of swelling and bruising until bedtime tonight. He has been ambulating on it. But he does seem to complain of some pain with manipulation of the foot and ankle. He has never injured this ankle before, most of the time mom states he injures his knees. Review of systems, HPI etc. obtained from mom as patient is disabled. Onset: this afternoon Severity: moderate Pain/Injury Location: left foot, left ankle, left heel Method of Injury: fell Modifying Factors: Worse With [place]ring Allergies and Home Medications Allergies Coded Allergies: No Known Drug Allergies (Unverified , 12/23/18) Patient Home Medication List Home Medication List Reviewed: Yes Carbamazepine (Carbamazepine ER) 100 Mg Tab.er.12h, 100 MG PO 0730,1800, (Reported) Entered as Reported by: ADWOA GIANG on 12/24/18 08 Carbamazepine (Carbamazepine Xr) 200 Mg Tab.er.12h, 200 MG PO 0730,1800, (Reported) Entered as Reported by: ADWOA GIANG on 12/24/18856 Divalproex Sodium (Divalproex Sodium) 500 Mg Tablet.dr, 1,000 MG PO 0730,1800, (Reported) Entered as Reported by: DEBRA ESPARZA on 12/23/182246 Ranitidine HCl (Ranitidine HCl) 150 Mg Tablet, 150 MG PO 0730, (Reported) Entered as Reported by: ADWOA GIANG on 12/24/18 08 Risperidone (Risperidone) 1 Mg Tablet, 2 MG PO 0730,1800, (Reported) Entered as Reported by: ADOWA GIANG on 12/24/18856 Review of Systems Constitutional: see HPI EENTM: no symptoms reported Respiratory: no symptoms reported Cardiovascular: no symptoms reported Gastrointestinal: no symptoms reported Genitourinary: no symptoms reported Musculoskeletal: joint pain (Left foot and ankle) Skin: other (Bruising) All Other Systems Reviewed Negative Unless Noted: Yes Past Ivauivs-Axzguc-Tmbpbk Hx Past Medical History Surgeries: No Respiratory: No Cardiac: No Neurological: Yes (AUTISIM, MR) Cerebral Palsy, Developmental Disorder, Seizure Disorder Genitourinary: No Gastrointestinal: No Musculoskeletal: Yes (CONTRACTURES OF HANDS/KNEES/HIPS) Contracture Endocrine: No HEENT: No Cancer: No Psychosocial: Yes (MR/AUTISM/? CEREBRAL PALSY? ) Integumentary: No Blood Disorders: No Physical Exam Vital Signs Vital Signs - First Documented 11/19/21 22:53 Temp 36.8 Pulse 96 Resp 16 B/P (MAP) 130/87 (101) Pulse Ox 97 O2 Delivery Room Air Capillary Refill : Height, Weight, BMI Height: 5'4.00" Weight: 132lbs. 8.0oz. 60.101849ll; BMI Method:Stated General Appearance: WD/WN, no apparent distress HEENT: PERRL/EOMI Neck: normal inspection Cardiovascular: regular rate, rhythm Respiratory: lungs clear, normal breath sounds, no respiratory distress, no accessory muscle use Hips: bilateral hip non-tender, bilateral hip normal inspection, bilateral hip normal range of motion, bilateral hip no evidence of injury Legs: bilateral leg non-tender, bilateral leg normal inspection, bilateral leg normal range of motion, bilateral leg no evidence of injury Knees: bilateral knee non-tender, bilateral knee normal inspection, bilateral knee normal range of motion, bilateral knee no evidence of injury Ankles: left ankle ecchymosis, left ankle limited range of motion, left ankle pain, left ankle soft tissue tenderness, left ankle swelling, left ankle other (Patient has bruising along the medial aspect of the left foot as well as over the ankle and distally into the dorsum of the foot and between the toes. Quite tender to palpation over the entirety of the foot and ankle.) Feet: left foot limited range of motion, left foot pain, left foot soft tissue tenderness, left foot swelling Neurologic/Tendon: normal motor functions Neurologic/Psychiatric: alert, normal mood/affect Skin: normal color, warm/dry (Bruising as above to the left foot and ankle) Progress/Results/Core Measures Results/Orders My Orders Orders - SHERRI WAGNER MD Ankle, Left, 3 Views (11/19/21 22:58) Ibuprofen Suspension (Motrin Suspension) (11/19/21 23:00) Foot, Left, 3 Views (11/19/21 23:10) Medications Given in ED Current Medications Medications Dose Ordered Sig/Donald Route Start Time Stop Time Status Last Admin Dose Admin Ibuprofen 500 mg ONCE ONCE PO 11/19/21 23:00 11/19/21 23:01 DC 11/19/21 23:08 500 MG Vital Signs/I&O 11/19/21 22:53 Temp 36.8 Pulse 96 Resp 16 B/P (MAP) 130/87 (101) Pulse Ox 97 O2 Delivery Room Air Progress Progress Note : Time: 23:50 Progress Note X-rays of the foot and ankle obtained, interpreted by me, no obvious fractures or dislocations. I did advise patient's mother that the x-rays will be read first thing in the morning by the radiologist and if they see anything that I might of missed we will contact her. We did Ben wrap his left foot and ankle for stability and comfort. He was provided 5 teaspoons of children's ibuprofen for swelling and pain. I advised that she allow him to walk minimally but also to elevate the foot and ankle while he is at rest to reduce swelling. Return precautions provided as well as reassurance. Mom verbalized understanding of the plan of care and is agreeable. All questions are sought and answered. Departure Impression Primary Impression: Left ankle sprain Qualified Codes: S93.402A - Sprain of unspecified ligament of left ankle, initial encounter Additional Impression: Contusion of left foot Qualified Codes: S90.32XA - Contusion of left foot, initial encounter Disposition: HOME, SELF-CARE Condition: Stable Departure-Patient Inst. Decision time for Depature: 23:50 Referrals: RADHA ATKINS MD (PCP/Family) Primary Care Physician Patient Instructions: Ankle Sprain ED Add. Discharge Instructions: You can keep the foot Ben wrapped for a couple of days for stability and comfort. If you want to give him liquid children's ibuprofen he would take 5 teaspoons every 6 hours with a little food as needed for pain and swelling. Have him elevate the left leg when he is at rest to help decrease swelling. Ice packs 20 minutes at a time 3-4 times a day for the swelling as well. We can walk as he is comfortable on the left foot and ankle. If the radiologist sees anything suspicious on the x-rays that I may have missed, we will contact you tomorrow and let you know. Return to the emergency department for any new, concerning or emergent complaints. Copy Copies To 1: RADHA ATKINS MD, KATHRYN M MD Nov 19, 2021 23:00
[2021-11-19 23:59] VITALS: BP 130/87
--- NOTE | 2021-11-20 06:01 | Diagnostic Imaging Report ---
Indication: Left foot injury from a fall 3 views of the left foot show no fracture, dislocation or other acute abnormalities. IMPRESSION: Negative left foot Dictated by: Dictated on workstation # [id number]
--- NOTE | 2021-11-20 06:01 | Diagnostic Imaging Report ---
Indication: Left ankle injury from a fall 3 views of the left ankle show no fracture, dislocation or other acute abnormalities. IMPRESSION: Negative left ankle Dictated by: Dictated on workstation # [id number]
== END 2021-11-19 23:59 | disposition home or self-care (01) ==
LOC: EDUNIT# 22:34 → ER 22:35
DX: S93.402A Sprain of unspecified ligament of left ankle, initial encounter (principal); S90.32XA Contusion of left foot, initial encounter; W19.XXXA Unspecified fall, initial encounter
CPT/HCPCS: 73610; 73630